=== PATIENT | male | born 1960 | race Two or more races ===

== ENCOUNTER 2020-07-05 08:00 | Day surgery (SDC) | payer OTHER | END 2020-07-05 14:50 | disposition home or self-care (01) | LOC: AMB-ENDOS 08:00 | PROVIDERS: ATTEND Colon & Rectal Surgery | DX: D12.3 Benign neoplasm of transverse colon (principal); K64.0 First degree hemorrhoids; Z20.828 Contact with and (suspected) exposure to other viral communicable diseases ==

== ENCOUNTER 2021-08-22 10:32 | Day surgery (SDC) | payer OTHER | END 2021-08-22 17:30 | disposition home or self-care (01) | LOC: AMB-ENDOS 10:32 | PROVIDERS: ATTEND Colon & Rectal Surgery | DX: D12.2 Benign neoplasm of ascending colon (principal); K64.0 First degree hemorrhoids; Z20.822 Contact with and (suspected) exposure to COVID-19 ==